=== PATIENT | female | born 1980 | race Caucasian/White ===

== ENCOUNTER 2017-02-01 18:38 | Emergency (ER) | payer MEDICAID ==
[2017-02-01 21:04] LABS: ABSOLUTE BASOPHILS # (AUTO) 0.1 10^3/uL (0.0-0.2); ABSOLUTE EOSINOPHILS # (AUTO) 0.2 10^3/uL (0.0-0.6); ABSOLUTE LYMPHOCYTES (AUTO) 2.9 10^3/uL (0.5-4.7); ABSOLUTE MONOCYTES (AUTO) 0.6 10^3/uL (0.1-1.4); ABSOLUTE NEUT (AUTO) 6.7 10^3/uL (1.7-8.2); BASOPHILS % (AUTO) 0.5 % (0-2); EOSINOPHILS % (AUTO) 2.1 % (0-6); HEMATOCRIT 45.3 % (36.0-47.0); HEMOGLOBIN 14.6 g/dL (12.0-15.5); HGB HCT DIFFERENCE -1.5; LYMPHOCYTES % (AUTO) 27.7 % (13-45); MEAN CORPUSCULAR HEMOGLOBIN 29.4 pg (27.0-33.4); MEAN CORPUSCULAR HGB CONC 32.4 g/dL (32.0-36.0); MEAN CORPUSCULAR VOLUME 91 fl (80-97); RED BLOOD COUNT 4.99 10^6/uL (3.72-5.28); RED CELL DISTRIBUTION WIDTH 15.2 % (11.5-14.0); SEGMENTED NEUTROPHILS % (AUTO) 63.7 % (42-78); WHITE BLOOD COUNT 10.6 10^3/uL (4.0-10.5)
[2017-02-01 22:05] LABS: APPEARANCE,URINE SLIGHTLY-CLOUDY; BILIRUBIN,URINE NEGATIVE (NEGATIVE); GLUCOSE, URINE >=500 mg/dL (NEGATIVE); KETONES,URINE TRACE mg/dL (NEGATIVE); LEUKOCYTE ESTERASE,URINE NEGATIVE (NEGATIVE); NITRITE,URINE NEGATIVE (NEGATIVE); PROTEIN,URINE 30 mg/dL (NEGATIVE); URINE SPECIFIC GRAVITY 1.036; UROBILINOGEN,URINE NEGATIVE mg/dL (<2.0)
--- NOTE | 2017-02-01 22:06 | ER Document Report ---
ED Medical Screen (RME) - General Chief Complaint: Vaginal Bleeding Stated Complaint: ANXIETY Time Seen by Provider: 02/01/17 21:37 Notes: Patient says that she has had vaginal bleeding for the past 5 or 6 days and it has gotten worse. She is having cramping along with the bleeding. When pressed for more history of when the vaginal bleeding began, patient actually reports irregular menses for 6-12 months. She says she is on her third or fourth different control pills, being prescribed by her primary care physician, for control and for vaginal bleeding. She was most recently switched to a new control pill a couple weeks ago. Patient has never been . Has not been seen by an OLDER ADULT SOCIAL WORK SPECIALIST yet. TRAVEL OUTSIDE OF THE [place] IN LAST 30 DAYS: No - Related Data Allergies/Adverse Reactions: brompheniramine maleate [From Dimetapp] Allergy (Severe, Verified 02/01/17 18:53 ) Extreme hyperactivity, pt feels "high" iodine [Iodine] Allergy (Severe, Verified 02/01/17 18:53) Throat swells, SOB, high fever, rash Penicillins Allergy (Severe, Verified 02/01/17 18:53) Throat swells, high fever, rash, SOB dextromethorphan HBr [From Dimetapp] Allergy (Unknown, Verified 02/01/17 18:53) phenylpropanolamine HCl [From Dimetapp] Allergy (Unknown, Verified 02/01/17 18: 53) povidone-iodine [From Betadine] Allergy (Unknown, Verified 02/01/17 18:53) pseudoephedrine HCl [From Dimetapp] Allergy (Unknown, Verified 02/01/17 18:53) Soap [From Betadine] Allergy (Unknown, Verified 02/01/17 18:53) sea food Allergy (Severe, Uncoded 02/01/17 18:53) Anaphylaxis ALL "CILLIN" DRUGS Allergy (Uncoded 02/01/17 18:53) Past Medical History - Social History Cigarette use (# per day): Yes Family history: Reviewed & Not Pertinent - Past Medical History Cardiac Medical History: Reports: Hx Hypercholesterolemia Pulmonary Medical History: Reports: Hx Asthma - As a child had exercise induced asthma, no meds now, Hx Pneumonia - May 17, 2014 Neurological Medical History: Reports: Hx Seizures - As a child, none for 20 yrs. No meds Endocrine Medical History: Reports: Hx Diabetes Mellitus Type 2 Psychiatric Medical History: Reports: Hx Anxiety - Plus panic attacks and stress , Hx Bipolar Disorder, Hx Depression, Hx Post Traumatic Stress Disorder Past Surgical History: Reports: Hx Oral Surgery - Immunizations Hx Diphtheria, Pertussis, Tetanus Vaccination: Yes - 2005 Review of Systems - Review of Systems Notes: REVIEW OF SYSTEMS: CONSTITUTIONAL : Denies fever. EENT: Denies eye, ear, nose or mouth or throat pain or other symptoms. CARDIOVASCULAR: Denies chest pain. RESPIRATORY: Denies cough, chest congestion, or shortness of breath. GASTROINTESTINAL: Denies abdominal pain or nausea, vomiting, or diarrhea. GENITOURINARY: Denies difficulty or painful urinating, urinary frequency, blood in urine. MUSCULOSKELETAL: Denies back or neck pain. Denies joint pain or swelling. SKIN: Denies rash or skin lesions. NEUROLOGICAL: Denies LOC or altered mental status. Denies headache. Denies sensory loss or motor deficits. ALL OTHER SYSTEMS REVIEWED AND NEGATIVE. Physical Exam - Vital signs Vitals: Temp Pulse Resp BP Pulse Ox 98.6 F 112 H 20 150/81 H 97 02/01/17 18:54 02/01/17 18:54 02/01/17 18:54 02/01/17 18:54 02/01/17 18:54 Interpretation: Tachycardic - Mild - Notes Notes: PHYSICAL EXAMINATION: GENERAL: Well-appearing, in no acute distress. 112 kg. HEAD: Atraumatic, normocephalic. NECK: Normal range of motion, supple. LUNGS: Breath sounds clear and equal bilaterally. HEART: Regular rate and rhythm without murmurs. ABDOMEN: Soft, minimal diffuse tenderness. No localized tenderness. No guarding or rebound. BACK: No tenderness throughout entire back. EXTREMITIES: Normal range of motion without pain. NEUROLOGICAL: Normal speech, normal gait. Normal sensory, motor, and reflex exams. Awake, alert, and oriented x3. Cranial nerves normal. PSYCH: Normal mood, normal affect. SKIN: Warm, dry, no rashes. Course - Re-evaluation Re-evalutation: 02/02/17 00:25 Patient's test is negative. CBC is normal. Advised the patient she needs to follow-up with an OLDER ADULT SOCIAL WORK SPECIALIST to have hormonal testing and have specialist care for her situation. - Vital Signs Vital signs: Temp Pulse Resp BP Pulse Ox 98.6 F 89 18 132/76 H 98 02/01/17 18:54 02/01/17 23:05 02/01/17 23:05 02/01/17 23:05 02/01/17 23:05 - Laboratory Result Diagrams: 02/01/17 20:37 Laboratory results interpreted by me: 02/01/17 02/01/17 20:37 21:41 WBC 10.6 H RDW 15.2 H Urine Protein 30 H Urine Glucose (UA) >=500 H Urine Ketones TRACE H Urine Blood LARGE H Doctor's Discharge - Discharge Clinical Impression: Vaginal bleeding Condition: Stable Disposition: HOME, SELF-CARE Additional Instructions: VAGINAL BLEEDING: You are having an episode of abnormal bleeding. Causes of abnormal vaginal bleeding can include miscarriage or tubal , tumors such as cancer or benign fibroids, medication effects, or hormone imbalance. Testing can eliminate unsuspected , tumors, or infection as a cause. "Dysfunctional uterine bleeding" is due to hormone imbalance, and is especially common at times when the normal cycle is disturbed -- whether by recent , use of control pills or hormones, or impending menopause. If the bleeding is innocent, most commonly a short course of hormones is given to restore the uterus to normal. Sometimes, the normal menstrual cycle corrects itself naturally. Sometimes , brief hormone therapy, or even a D&C is required. Your physician will advise you. Treatment for anemia may be required if bleeding is severe. You should rest and avoid intercourse until the bleeding is controlled. Call the doctor or return for re-examination if you feel faint, have increasing pain, or have a major increase in the amount of bleeding. NORMAL EXAM AND WORKUP: At this time, except for vaginal bleeding, your examination and workup show no significant abnormality. No significant abnormal physical findings were noted. All laboratory, EKG, and imaging (x-ray, CT scans, ultrasound) studies that were ordered show no significant abnormality. Although your examination and all studies that were ordered showed no significant abnormal finding, there are no examinations and no studies that are 100% accurate. There is always the possibility that some abnormality could exist and not be detected with physical examination or within the limits and capabilities of laboratory and other studies. You should return or follow up as you were instructed on your visit today for further evaluation if your symptoms do not resolve. Your irregular menstrual cycle that has been occurring for many months now it is very likely secondary to some hormone imbalance in your body. The only people who can appropriately test and treat that problem are the OLDER ADULT SOCIAL WORK SPECIALIST doctors. [facility] IN [place]: [facility] [address] [place] [address] [phone] FOLLOW-UP CARE: If you have been referred to a physician for follow-up care, call the physician s office for an appointment as you were instructed or within the next two days. If you experience worsening or a significant change in your symptoms (very heavy bleeding with large clots of blood, passage of tissue, more severe abdominal / pelvic pain or cramping, feeling faint or severe weakness, fever, etc.), notify the physician immediately or return to the Emergency Department at any time for re-evaluation. Referrals: MURRAY COPELAND, [Primary Care Provider] - Follow up as needed
[2017-02-01 23:17] VITALS: BP 132/76
== END 2017-02-01 23:05 | disposition home or self-care (01) ==
LOC: ER 18:38
DX: N93.9 Abnormal uterine and vaginal bleeding, unspecified (principal); N92.6 Irregular menstruation, unspecified; Z79.3 Long term (current) use of hormonal contraceptives; E11.9 Type 2 diabetes mellitus without complications; R00.0 Tachycardia, unspecified; Z88.8 Allergy status to other drugs, medicaments and biological substances; Z88.0 Allergy status to penicillin; Z88.3 Allergy status to other anti-infective agents; Z87.892 Personal history of anaphylaxis; Z91.013 Allergy to seafood; Z72.0 Tobacco use
CPT/HCPCS: 36415; 81001; 84703; 85025; 86900; 86901; 99284

== ENCOUNTER 2017-07-23 22:45 | Emergency (ER) | payer MEDICAID ==
[2017-07-24] MEDS ORDERED: AZITHROMYCIN 250 MG TABLET PO ONE (00:03)
--- NOTE | 2017-07-24 00:11 | ER Document Report ---
ED ENT - General Chief Complaint: L ear pain Stated Complaint: LEFT EAR PAIN Time Seen by Provider: 07/23/17 23:16 Mode of Arrival: Ambulatory Information source: Patient Notes: 36-year-old female presents to ED for complaint of left ear pain sore throat for several days. She states she was having right ear pain but it is now resolved. She states she is also having facial pains. She also states she is 6 weeks . TRAVEL OUTSIDE OF THE [place] IN LAST 30 DAYS: No - HPI Patient complains to provider of: Ear problem, Nose problem, Throat problem Onset: Other - Several days Onset/Duration: Gradual, Intermittent Quality of pain: Sharp Severity: Severe Pain Level: 5 Location of pain: Ears, Nose, Sinus, Throat Associated symptoms: Congestion, Cough, Ear pain, Runny nose, Sinus pain, Sinus drainage, Sore throat. denies: Chills, Fever Similar symptoms previously: No Recently seen / treated by doctor: No - Related Data Allergies/Adverse Reactions: brompheniramine maleate [From Dimetapp] Allergy (Severe, Verified 02/01/17 18:53 ) Extreme hyperactivity, pt feels "high" iodine [Iodine] Allergy (Severe, Verified 02/01/17 18:53) Throat swells, SOB, high fever, rash Penicillins Allergy (Severe, Verified 02/01/17 18:53) Throat swells, high fever, rash, SOB dextromethorphan HBr [From Dimetapp] Allergy (Unknown, Verified 02/01/17 18:53) phenylpropanolamine HCl [From Dimetapp] Allergy (Unknown, Verified 02/01/17 18: 53) povidone-iodine [From Betadine] Allergy (Unknown, Verified 02/01/17 18:53) pseudoephedrine HCl [From Dimetapp] Allergy (Unknown, Verified 02/01/17 18:53) Soap [From Betadine] Allergy (Unknown, Verified 02/01/17 18:53) alprazolam [From Xanax] Allergy (Verified 07/23/17 23:48) mirtazapine [From Remeron] Allergy (Verified 07/23/17 23:48) sea food Allergy (Severe, Uncoded 02/01/17 18:53) Anaphylaxis ALL "CILLIN" DRUGS Allergy (Uncoded 02/01/17 18:53) Past Medical History - General Information source: Patient - Social History Smoking Status: Current Every Day Smoker Cigarette use (# per day): Yes - 6 cigarettes a day Chew tobacco use (# tins/day): No Smoking Education Provided: Yes - 4 minutes Frequency of alcohol use: None Drug Abuse: None Occupation: None Lives with: Spouse/Significant other Family History: Arthritis, CAD, CVA, DM, Hyperlipidemia, Hypertension, Malignancy, Other - Seizures. denies: COPD Patient has suicidal ideation: No Patient has homicidal ideation: No - Past Medical History Cardiac Medical History: Reports: Hx Hypercholesterolemia Pulmonary Medical History: Reports: Hx Asthma - As a child had exercise induced asthma, no meds now, Hx Pneumonia - May 17, 2014 EENT Medical History: Reports: None Neurological Medical History: Reports: Hx Seizures - As a child, none for 20 yrs. No meds Endocrine Medical History: Reports: Hx Diabetes Mellitus Type 2 Renal/ Medical History: Reports: None Malignancy Medical History: Reports: None GI Medical History: Reports: None Musculoskeltal Medical History: Reports None Skin Medical History: Reports None Psychiatric Medical History: Reports: Hx Anxiety - Plus panic attacks and stress , Hx Bipolar Disorder, Hx Depression, Hx Post Traumatic Stress Disorder Traumatic Medical History: Reports: None Infectious Medical History: Reports: None Past Surgical History: Reports: Hx Oral Surgery - [place] teeth - Immunizations Hx Diphtheria, Pertussis, Tetanus Vaccination: Yes - 2005 Review of Systems - Review of Systems Notes: Constitutional: [PRESENT: as per HPI. ABSENT: chills, fever(s), headache(s), weight gain, weight loss] Eyes: [ABSENT: visual disturbances] Ears: [ABSENT: hearing changes] Nasopharyngeal: Left ear pain, facial pain, nasal drainage, and sore throat. Cardiovascular: [ABSENT: chest pain, dyspnea on exertion, edema, orthropnea, palpitations] Respiratory: Cough and congestion Gastrointestinal: [ABSENT: abdominal pain, constipation, diarrhea, hematemesis, hematochezia, nausea, vomiting] Genitourinary: [ABSENT: dysuria, hematuria] Musculoskeletal: [ABSENT: joint swelling] Integumentary: [ABSENT: rash, wounds] Neurological: [ABSENT: abnormal gait, abnormal speech, confusion, dizziness, focal weakness, syncope] Psychiatric: [ABSENT: anxiety, depression, homicidal ideation, suicidal ideation ] Endocrine: [ABSENT: cold intolerance, heat intolerance, menstrual abnormalities , polydipsia, polyuria] Hematologic/Lymphatic: [ABSENT: easy bleeding, easy bruising, lymphadenopathy] Physical Exam - Vital signs Vitals: Temp Pulse Resp BP Pulse Ox 98.4 F 102 H 17 150/78 H 94 07/23/17 22:52 07/23/17 22:52 07/23/17 22:52 07/23/17 22:52 07/23/17 22:52 - Notes Notes: PHYSICAL EXAMINATION: Morbidly obese unkempt female GENERAL: Well-appearing, well-nourished and in no acute distress. HEAD: Atraumatic, normocephalic. EYES: Pupils equal round and reactive to light, extraocular movements intact, conjunctiva are normal. ENT: Erythematous swollen nasal turbinates with whitish yellow drainage, oropharynx erythematous with postnasal drip without exudates. Moist mucous membranes. Right tympanic membrane pearly pacheco no swelling no drainage left tympanic membrane red and bulging loss of bony landmarks. NECK: Normal range of motion, supple without lymphadenopathy LUNGS: Breath sounds clear to auscultation bilaterally and equal. No wheezes rales or rhonchi. HEART: Regular rate and rhythm without murmurs ABDOMEN: Soft, nontender, nondistended abdomen. No guarding, no rebound. No masses appreciated. Female : deferred Musculoskeletal: Normal range of motion, no pitting or edema. No cyanosis. NEUROLOGICAL: Cranial nerves grossly intact. Normal speech, normal gait. Normal sensory, motor exams PSYCH: Normal mood, normal affect. SKIN: Warm, Dry, normal turgor, no rashes or lesions noted. Course - Re-evaluation Re-evalutation: 07/24/17 01:31 Patient was treated with azithromycin and Tylenol in the emergency room and discharged home with prescription for azithromycin. Patient to follow-up with her primary doctor and with a AGENT CONTRACT CLERK as she is she states 6 weeks . Patient instructed on cigarettes and and need to try to stop as soon as she is able. Patient verbalized understanding of instructions patient discharged home to follow-up with her primary doctor and AGENT CONTRACT CLERK. - Vital Signs Vital signs: Temp Pulse Resp BP Pulse Ox 97.8 F 99 20 128/69 H 97 07/24/17 00:21 07/24/17 00:21 07/24/17 00:21 07/24/17 00:21 07/24/17 00:21 Discharge - Discharge Clinical Impression: Sore throat (viral) Otitis media Qualifiers: Otitis media type: unspecified Laterality: left Qualified Code(s): H66.92 - Otitis media, unspecified, left ear URI (upper respiratory infection) Qualifiers: URI type: unspecified URI Qualified Code(s): J06.9 - Acute upper respiratory infection, unspecified Condition: Stable Disposition: HOME, SELF-CARE Additional Instructions: UPPER RESPIRATORY ILLNESS: You have a viral infection of the respiratory passages -- a "cold." This common infection causes nasal congestion, drainage, and often sore throat and cough. It is highly contagious. The disease usually lasts about 10 to 14 days. There is no "cure" for the viral infection -- it must run its course. If there is a complication, such as bacterial infection in the nose, sinuses, middle ear, or bronchial tubes, antibiotics may be required. The antibiotics won't affect the virus. Drink plenty of fluids. A humidifier may help. An expectorant medication or decongestant may make you more comfortable. Use acetaminophen or ibuprofen for fever or aches. See the doctor if fever persists over two days, if there is any significant worsening of your symptoms, or if you simply fail to improve as expected. Viral Syndrome The physician has diagnosed a viral infection. Viruses not only cause "colds," but can cause many different symptoms including generalized aching, fever, headache, cough, diarrhea, nausea, vomiting, and fatigue. The treatment, for the most part, is simply relief of symptoms. This means that antibiotics are usually not given. Rest, fluids, pain medications and, occasionally, medication for the specific symptoms that are most bothersome will be prescribed. Use good handwashing to avoid passing the virus to others. Shared toys should be cleaned with disinfectant. Clean the toilets, sinks, and counter surfaces in bathrooms. Launder clothing in hot water. Contact the physician if you develop any new or unusual symptoms such as severe headache, stiff neck, high fever, chest pain, productive cough, or shortness of breath. You should be rechecked if you don't see marked improvement within seven to 10 days. SORE THROAT: Sore throats may be caused by viruses, bacteria, or fungi. Most are due to a virus, and must get better on their own. Bacterial sore throats, particularly those due to "strep," need treatment with antibiotics. If an antibiotic is prescribed, be sure to take the medication for a full 10 days. Failure to take the antibiotic can result in complications such as rheumatic fever. Sometimes, an injection of antibiotics is given instead of pills or liquid. This single "shot" is equal in effectiveness to the oral medication. To relieve symptoms, take acetaminophen for pain. Sip clear liquids frequently, or eat popsicles or ice chips. Anesthetic sprays or lozenges may help. Make sure the air in the room is not too dry. Avoid using decongestants or antihistamines. Call the doctor if there is no improvement in two days, or if you have difficulty breathing, increasing throat pain, high fever, rash, or frequent vomiting. OTITIS MEDIA: You have a middle ear infection (otitis media). This is usually a complication of a cold or sore throat. The middle ear cavity becomes filled with infection. Pressure and stretching of the ear drum cause pain. Antibiotics are required. A 10 day course is usually prescribed. A decongestant may be recommended if you have a "runny nose." You may need anesthetic drops or other pain medication. A follow-up exam may be recommended to make sure the infection has completely cleared. If the ear begins to drain, it means the ear drum has ruptured. This will usually heal spontaneously. However, it means you should keep the ear dry until re-examined by a doctor. Call the physician or return for examination at once if there is severe headache, stiff neck, confusion, increasing fever, or dizziness. You should improve significantly within two days. If you're not better, call the doctor. AZITHROMYCIN: Azithromycin (Zithromax) is a broad spectrum antibiotic in the same class as erythromycin. It can treat a variety of bacterial infections, but is most frequently used for respiratory infections. Azithromycin is extremely long-lasting. It accumulates in body tissues and continues to kill bacteria for many days. In order to improve absorption, Azithromycin should be taken at least one hour before or two hours after a meal. It does not have the same strong tendency to upset the stomach as erythromycin and is usually very well tolerated. Patients who have had a rash or other true allergic reactions to erythromycin should not take this medication. Call if you develop gastrointestinal distress, severe diarrhea, rash, hives, itching, or shortness of breath. USE OF ACETAMINOPHEN (Tylenol): Acetaminophen may be taken for pain relief or fever control. It's much safer than aspirin, offering a wider range of "safe" dosages. It is safe during . Some brand names are Tylenol, Panadol, Datril, Anacin 3, Tempra, and Liquiprin. Acetaminophen can be repeated every four hours. The following are maximum recommended dosages: >89 pounds or adults 650 mg to 900 mg Acetaminophen can be repeated every four hours. Maximum dose not to exceed 4000 mg a day. SMOKING: If you smoke, you should stop smoking. The tar and chemicals in cigarette smoke are harmful. Smoking has been shown to cause: emphysema chronic bronchitis lung cancer mouth and throat cancer stomach and pancreas cancer premature aging defects In addition, smoking increases ear and lung infections in children of smokers. FOLLOW-UP CARE: If you have been referred to a physician for follow-up care, call the physician s office for an appointment as you were instructed or within the next two days. If you experience worsening or a significant change in your symptoms, notify the physician immediately or return to the Emergency Department at any time for re-evaluation. Prescriptions: Azithromycin 250 mg PO DAILY #4 tablet Forms: Smoking Cessation Education, Elevated Blood Pressure Referrals: MARKY BROCK FNP-C [Primary Care Provider] - Follow up as needed
[2017-07-24] MEDS ORDERED: ACETAMINOPHEN 325 MG TABLET PO ONE (00:24)
[2017-07-24 00:32] VITALS: BP 128/69
== END 2017-07-24 00:32 | disposition home or self-care (01) ==
LOC: ER 22:45
DX: O26.891 Other specified pregnancy related conditions, first trimester (principal); H66.92 Otitis media, unspecified, left ear; H92.02 Otalgia, left ear; R05 Cough; R09.82 Postnasal drip; O99.511 Diseases of the respiratory system complicating pregnancy, first trimester; J02.8 Acute pharyngitis due to other specified organisms; B97.89 Other viral agents as the cause of diseases classified elsewhere; J06.9 Acute upper respiratory infection, unspecified; J34.89 Other specified disorders of nose and nasal sinuses; O24.111 Pre-existing type 2 diabetes mellitus, in pregnancy, first trimester; E11.9 Type 2 diabetes mellitus without complications; O99.331 Smoking (tobacco) complicating pregnancy, first trimester; F17.210 Nicotine dependence, cigarettes, uncomplicated; Z71.6 Tobacco abuse counseling; Z3A.01 Less than 8 weeks gestation of pregnancy; Z88.8 Allergy status to other drugs, medicaments and biological substances; Z88.0 Allergy status to penicillin; Z88.3 Allergy status to other anti-infective agents; Z91.013 Allergy to seafood
CPT/HCPCS: 99282; J3490; Q0144

== ENCOUNTER 2017-07-28 19:55 | Emergency (ER) | payer MEDICAID ==
[2017-07-28] MEDS ORDERED: OXYCODONE-ACETAMINOPHEN 5-325 MG TABLET PO ONE (20:38)
--- NOTE | 2017-07-28 20:41 | ER Document Report ---
ED Medical Screen (RME) - General Chief Complaint: Vag Bleeding, +preg <12wks Stated Complaint: VAGINAL BLEEDING Time Seen by Provider: 07/28/17 20:37 Notes: Patient is here because she is having pelvic cramping. Patient was , but was informed by her NURSES AIDE doctor in [place], after an office ultrasound July 25,, that the fetus had no heartbeat and would need to be aborted. Patient says that she was given a prescription for 3 pills to take it one time which she took on Saturday morning, July 26. She says that she just started bleeding in the past hour and a half and is having cramping. She expected that she was going to have the symptoms sooner and is concerned there is some problem. She is not bleeding heavily. Not running any fever. TRAVEL OUTSIDE OF THE [place] IN LAST 30 DAYS: No - Related Data Allergies/Adverse Reactions: brompheniramine maleate [From Dimetapp] Allergy (Severe, Verified 07/28/17 19:56 ) Extreme hyperactivity, pt feels "high" iodine [Iodine] Allergy (Severe, Verified 07/28/17 19:56) Throat swells, SOB, high fever, rash Penicillins Allergy (Severe, Verified 07/28/17 19:56) Throat swells, high fever, rash, SOB dextromethorphan HBr [From Dimetapp] Allergy (Unknown, Verified 07/28/17 19:56) phenylpropanolamine HCl [From Dimetapp] Allergy (Unknown, Verified 07/28/17 19: 56) povidone-iodine [From Betadine] Allergy (Unknown, Verified 07/28/17 19:56) pseudoephedrine HCl [From Dimetapp] Allergy (Unknown, Verified 07/28/17 19:56) Soap [From Betadine] Allergy (Unknown, Verified 07/28/17 19:56) alprazolam [From Xanax] Allergy (Verified 07/28/17 19:56) mirtazapine [From Remeron] Allergy (Verified 07/28/17 19:56) sea food Allergy (Severe, Uncoded 07/28/17 19:56) Anaphylaxis ALL "CILLIN" DRUGS Allergy (Uncoded 07/28/17 19:56) Past Medical History - Social History Family history: Reviewed & Not Pertinent - Past Medical History Cardiac Medical History: Reports: Hx Hypercholesterolemia Denies: Hx Coronary Artery Disease, Hx Heart Attack, Hx Hypertension Pulmonary Medical History: Reports: Hx Asthma - As a child had exercise induced asthma, no meds now, Hx Pneumonia - May 17, 2014 Denies: Hx Bronchitis, Hx COPD Neurological Medical History: Reports: Hx Seizures - As a child, none for 20 yrs. No meds. Denies: Hx Cerebrovascular Accident Endocrine Medical History: Reports: Hx Diabetes Mellitus Type 2 Renal/ Medical History: Denies: Hx Peritoneal Dialysis Musculoskeltal Medical History: Denies Hx Arthritis Psychiatric Medical History: Reports: Hx Anxiety - Plus panic attacks and stress , Hx Bipolar Disorder, Hx Depression, Hx Post Traumatic Stress Disorder Past Surgical History: Reports: Hx Oral Surgery - [place] teeth - Immunizations Hx Diphtheria, Pertussis, Tetanus Vaccination: Yes - 2005 Physical Exam - Vital signs Vitals: Temp Pulse Resp BP Pulse Ox 97.6 F 102 H 18 161/86 H 96 07/28/17 20:03 07/28/17 20:03 07/28/17 20:03 07/28/17 20:03 07/28/17 20:03 Course - Vital Signs Vital signs: Temp Pulse Resp BP Pulse Ox 97.6 F 102 H 18 161/86 H 96 07/28/17 20:03 07/28/17 20:03 07/28/17 20:03 07/28/17 20:03 07/28/17 20:03
[2017-07-28 21:06] LABS: ABSOLUTE BASOPHILS # (AUTO) 0.1 10^3/uL (0.0-0.2); ABSOLUTE EOSINOPHILS # (AUTO) 0.6 10^3/uL (0.0-0.6); ABSOLUTE LYMPHOCYTES (AUTO) 3.3 10^3/uL (0.5-4.7); ABSOLUTE MONOCYTES (AUTO) 0.9 10^3/uL (0.1-1.4); ABSOLUTE NEUT (AUTO) 8.1 10^3/uL (1.7-8.2); BASOPHILS % (AUTO) 0.4 % (0-2); EOSINOPHILS % (AUTO) 4.6 % (0-6); HEMATOCRIT 40.9 % (36.0-47.0); HEMOGLOBIN 13.6 g/dL (12.0-15.5); LYMPHOCYTES % (AUTO) 25.7 % (13-45); MEAN CORPUSCULAR HEMOGLOBIN 29.2 pg (27.0-33.4); MEAN CORPUSCULAR HGB CONC 33.1 g/dL (32.0-36.0); MEAN CORPUSCULAR VOLUME 88 fl (80-97); MONOCYTES % (AUTO) 6.8 % (3-13); PLATELET COUNT 405 10^3/uL (150-450); RED BLOOD COUNT 4.64 10^6/uL (3.72-5.28); RED CELL DISTRIBUTION WIDTH 12.6 % (11.5-14.0); SEGMENTED NEUTROPHILS % (AUTO) 62.5 % (42-78); TOTAL CELLS COUNTED % (AUTO) 100 %
[2017-07-28] MEDS ORDERED: DIAZEPAM 5 MG TABLET PO ONE (22:51)
--- NOTE | 2017-07-28 22:56 | ER Document Report ---
ED General - General Chief Complaint: Vag Bleeding, +preg <12wks Stated Complaint: VAGINAL BLEEDING Time Seen by Provider: 07/28/17 20:37 Notes: Patient is a 36-year-old who presents with mild vaginal bleeding. Patient states that she was very concerned about the quantity of vaginal bleeding as her friend who has had a miscarriage in the past told her that it was "too much". Patient was recently given misoprostol for a medical induction of an due to having intrauterine demise at approximately 12 weeks. Patient does note that since that time she has had some intermittent lower abdominal cramping that is mild in nature. Nothing improves or worsens her symptoms. She notes that she is not having any further vaginal bleeding at this time. She notes that at no point she saturated through a single pad. She has not discussed her concerns today with her [employer]. She denies any fever, vomiting, or vaginal discharge. TRAVEL OUTSIDE OF THE [place] IN LAST 30 DAYS: No - Related Data Allergies/Adverse Reactions: brompheniramine maleate [From Dimetapp] Allergy (Severe, Verified 07/28/17 19:56 ) Extreme hyperactivity, pt feels "high" iodine [Iodine] Allergy (Severe, Verified 07/28/17 19:56) Throat swells, SOB, high fever, rash Penicillins Allergy (Severe, Verified 07/28/17 19:56) Throat swells, high fever, rash, SOB dextromethorphan HBr [From Dimetapp] Allergy (Unknown, Verified 07/28/17 19:56) phenylpropanolamine HCl [From Dimetapp] Allergy (Unknown, Verified 07/28/17 19: 56) povidone-iodine [From Betadine] Allergy (Unknown, Verified 07/28/17 19:56) pseudoephedrine HCl [From Dimetapp] Allergy (Unknown, Verified 07/28/17 19:56) Soap [From Betadine] Allergy (Unknown, Verified 07/28/17 19:56) alprazolam [From Xanax] Allergy (Verified 07/28/17 19:56) mirtazapine [From Remeron] Allergy (Verified 07/28/17 19:56) sea food Allergy (Severe, Uncoded 07/28/17 19:56) Anaphylaxis ALL "CILLIN" DRUGS Allergy (Uncoded 07/28/17 19:56) Past Medical History - General Information source: Patient - Social History Smoking Status: Current Every Day Smoker Frequency of alcohol use: None Drug Abuse: None Lives with: Spouse/Significant other Family History: Arthritis, CAD, CVA, DM, Hyperlipidemia, Hypertension, Malignancy, Other - Seizures. denies: COPD Patient has suicidal ideation: No Patient has homicidal ideation: No - Past Medical History Cardiac Medical History: Reports: Hx Hypercholesterolemia Denies: Hx Coronary Artery Disease, Hx Heart Attack, Hx Hypertension Pulmonary Medical History: Reports: Hx Asthma - As a child had exercise induced asthma, no meds now, Hx Pneumonia - May 17, 2014 Denies: Hx Bronchitis, Hx COPD Neurological Medical History: Reports: Hx Seizures - As a child, none for 20 yrs. No meds. Denies: Hx Cerebrovascular Accident Endocrine Medical History: Reports: Hx Diabetes Mellitus Type 2 Renal/ Medical History: Denies: Hx Peritoneal Dialysis Musculoskeltal Medical History: Denies Hx Arthritis Psychiatric Medical History: Reports: Hx Anxiety - Plus panic attacks and stress , Hx Bipolar Disorder, Hx Depression, Hx Post Traumatic Stress Disorder Past Surgical History: Reports: Hx Oral Surgery - [place] teeth - Immunizations Hx Diphtheria, Pertussis, Tetanus Vaccination: Yes - 2005 Review of Systems - Review of Systems Notes: Constitutional: Negative for fever. HENT: Negative for sore throat. Eyes: Negative for visual changes. Cardiovascular: Negative for chest pain. Respiratory: Negative for shortness of breath. Gastrointestinal: Positive for abdominal cramping Genitourinary: Positive for vaginal bleeding Musculoskeletal: Negative for back pain. Skin: Negative for rash. Neurological: Negative for headaches, weakness or numbness. 10 point ROS negative except as marked above and in HPI. Physical Exam - Vital signs Vitals: Temp Pulse Resp BP Pulse Ox 97.6 F 102 H 18 161/86 H 96 07/28/17 20:03 07/28/17 20:03 07/28/17 20:03 07/28/17 20:03 07/28/17 20:03 Interpretation: Tachycardic Notes: PHYSICAL EXAMINATION: GENERAL: Well-appearing, well-nourished and in no acute distress. HEAD: Atraumatic, normocephalic. EYES: Pupils equal round and reactive to light, extraocular movements intact, sclera anicteric, conjunctiva are normal. ENT: nares patent, oropharynx clear without exudates. Moist mucous membranes. NECK: Normal range of motion, supple without lymphadenopathy LUNGS: Breath sounds clear to auscultation bilaterally and equal. No wheezes rales or rhonchi. HEART: Regular rate and rhythm without murmurs ABDOMEN: Soft, nontender, normoactive bowel sounds. No guarding, no rebound. No masses appreciated. EXTREMITIES: Normal range of motion, no pitting or edema. No cyanosis. NEUROLOGICAL: No focal neurological deficits. Moves all extremities spontaneously and on command. PSYCH: Moderately anxious SKIN: Warm, Dry, normal turgor, no rashes or lesions noted. Course - Re-evaluation Re-evalutation: 07/28/17 22:52 Patient presents after having an acute panic reaction after having some mild to moderate vaginal bleeding after taking misoprostol for medically induced abortive therapy for a spontaneous intrauterine demise. Patient is otherwise very well in appearance, no focal abdominal tenderness, hemoglobin within normal limits. Vitals are within normal limits. Patient herself admits that she thinks her friend accidentally scared her into having a panic attack when she was concerned about the amount of bleeding the patient was having which is quite anticipated given the patient is receiving misoprostol. No indication for further imaging or labs at this time. I have again reviewed with the patient anticipated clinical symptoms in the setting of receiving a medical and have encouraged follow-up with [facility] as scheduled. She and her family at the bedside are in agreement with this. At this time will discharge with return precautions and follow-up recommendations. Verbal discharge instructions given a the bedside and opportunity for questions given. Medication warnings reviewed. Patient is in agreement with this plan and has verbalized understanding of return precautions and the need for primary care follow-up in the next 24-72 hours. - Vital Signs Vital signs: Temp Pulse Resp BP Pulse Ox 97.6 F 89 18 135/82 H 99 07/28/17 20:03 07/28/17 23:28 07/28/17 23:28 07/28/17 23:28 07/28/17 23:28 - Laboratory Result Diagrams: 07/28/17 20:45 Laboratory results interpreted by me: 07/28/17 20:45 WBC 13.0 H Discharge - Discharge Clinical Impression: Vaginal bleeding, Medical Condition: Good Disposition: HOME, SELF-CARE Additional Instructions: Your symptoms are anticipated for undergoing a medically induced . Return immediately if you worsening pain, you began bleeding through more than 2 pads per hour for more than 3 hours, you pass out, have persistent vomiting, develop a fever greater than 100.4F, or any other symptoms that are concerning to you.
[2017-07-28 23:46] VITALS: BP 135/82
== END 2017-07-28 23:46 | disposition home or self-care (01) ==
LOC: ER 19:55
DX: O03.6 Delayed or excessive hemorrhage following complete or unspecified spontaneous abortion (principal); E78.00 Pure hypercholesterolemia, unspecified; E11.9 Type 2 diabetes mellitus without complications; Z88.0 Allergy status to penicillin; Z91.013 Allergy to seafood
CPT/HCPCS: 99284; 36415; 85025; J3490

== ENCOUNTER 2017-08-10 04:08 | Emergency (ER) | payer MEDICAID ==
[2017-08-10] MEDS ORDERED: DIPH/PERTUSS(ACELL)/TETANUS VAC/PF 0.5 ML SYR (>=10YO) IM ONE ×2 (04:33→21:17)
[2017-08-10] MEDS ORDERED: GLUCAGON,HUMAN RECOMB 1 MG INJ IM PRN (04:33)
[2017-08-10] MEDS ORDERED: LIDOCAINE 1% INJ-PF (10 MG/ML) 30 ML SDV INJ ONE (04:33)
[2017-08-10] MEDS ORDERED: DEXTROSE 50%-WATER 25 GM/50 ML DISP.SYRIN IV PRN ×2 (04:33)
[2017-08-10] MEDS ORDERED: DEXTROSE 40% GEL 15 GM TUBE PO PRN ×2 (04:33)
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
[2017-08-10 05:23] LABS: ABSOLUTE BASOPHILS # (AUTO) 0.1 10^3/uL (0.0-0.2); ABSOLUTE EOSINOPHILS # (AUTO) 0.2 10^3/uL (0.0-0.6); ABSOLUTE LYMPHOCYTES (AUTO) 2.8 10^3/uL (0.5-4.7); ABSOLUTE MONOCYTES (AUTO) 0.7 10^3/uL (0.1-1.4); ABSOLUTE NEUT (AUTO) 7.5 10^3/uL (1.7-8.2); BASOPHILS % (AUTO) 0.6 % (0-2); EOSINOPHILS % (AUTO) 2.1 % (0-6); HEMATOCRIT 39.8 % (36.0-47.0); HEMOGLOBIN 13.1 g/dL (12.0-15.5); LYMPHOCYTES % (AUTO) 24.9 % (13-45); MEAN CORPUSCULAR HEMOGLOBIN 28.6 pg (27.0-33.4); MEAN CORPUSCULAR VOLUME 87 fl (80-97); MONOCYTES % (AUTO) 6.5 % (3-13); PLATELET COUNT 373 10^3/uL (150-450); RED BLOOD COUNT 4.59 10^6/uL (3.72-5.28); RED CELL DISTRIBUTION WIDTH 13.2 % (11.5-14.0); SEGMENTED NEUTROPHILS % (AUTO) 65.9 % (42-78); TOTAL CELLS COUNTED % (AUTO) 100 %; WHITE BLOOD COUNT 11.4 10^3/uL (4.0-10.5)
[2017-08-10 05:43] LABS: ALANINE AMINOTRANSFERASE 30 U/L (9-52); ALBUMIN 3.9 g/dL (3.5-5.0); ALKALINE PHOSPHATASE 93 U/L (38-126); ANION GAP 10 (5-19); ASPARTATE AMINO TRANSFERASE 16 U/L (14-36); BILIRUBIN,DIRECT 0.4 mg/dL (0.0-0.4); BILIRUBIN,TOTAL 0.8 mg/dL (0.2-1.3); BLOOD UREA NITROGEN 11 mg/dL (7-20); CALCIUM 9.6 mg/dL (8.4-10.2); CARBON DIOXIDE 24 mmol/L (22-30); CHLORIDE 104 mmol/L (98-107); GLUCOSE 271 mg/dL (75-110); POTASSIUM 4.1 mmol/L (3.6-5.0); SODIUM 137.7 mmol/L (137-145); TOTAL PROTEIN 6.4 g/dL (6.3-8.2)
[2017-08-10 05:45] LABS: ACETAMINOPHEN < 10 ug/mL (10-30); ALCOHOL < 10 mg/dL (NONE DETECTED); SALICYLATE < 1.0 mg/dL (2.0-20.0)
--- NOTE | 2017-08-10 09:50 | EKG REPORT ---
SEVERITY:- NORMAL ECG - SINUS RHYTHM : Confirmed by: Julio Ahn MD 10-Aug-2017 09:49:43
[2017-08-10] MEDS: BUSPIRONE HCL 10 MG TABLET PO SCH ×2 (10:17→21:34)
[2017-08-10] MEDS: INSULIN REG, HUMAN 100 UNIT/ML 3 ML VIAL (PYX) SUBCUT PRN ×3 (10:18→21:48)
[2017-08-10] MEDS: DULOXETINE HCL 30 MG CAPSULE.DR PO SCH ×2 (10:18→21:35)
--- NOTE | 2017-08-10 10:56 | ER Document Report ---
Doctor's Note Notes: 08/10/17 10:57 36-year-old female. Seen by mental health this morning. Recommend for IVC. Will place on IVC sign paperwork at this time. Will have the psychologist see patient as well. Will continue to follow throughout the day.
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
[2017-08-10] MEDS ORDERED: DULOXETINE HCL 30 MG CAPSULE.DR PO SCH (12:30)
[2017-08-10] MEDS: OLANZAPINE 2.5 MG TABLET PO SCH ×2 (12:38→21:40)
[2017-08-11] MEDS: INSULIN REG, HUMAN 100 UNIT/ML 3 ML VIAL (PYX) SUBCUT PRN ×2 (07:12→16:07)
[2017-08-11] MEDS: DULOXETINE HCL 30 MG CAPSULE.DR PO SCH ×2 (10:47→18:20)
[2017-08-11] MEDS: BUSPIRONE HCL 10 MG TABLET PO SCH ×2 (10:47→18:20)
[2017-08-11] MEDS: OLANZAPINE 2.5 MG TABLET PO SCH ×2 (10:48→18:19)
[2017-08-11 12:17] LABS: APPEARANCE,URINE CLOUDY; BILIRUBIN,URINE NEGATIVE (NEGATIVE); COLOR,URINE YELLOW; GLUCOSE, URINE >=500 mg/dL (NEGATIVE); KETONES,URINE NEGATIVE (NEGATIVE); LEUKOCYTE ESTERASE,URINE NEGATIVE (NEGATIVE); NITRITE,URINE NEGATIVE (NEGATIVE); PROTEIN,URINE NEGATIVE (NEGATIVE); URINE SPECIFIC GRAVITY 1.023; UROBILINOGEN,URINE NEGATIVE mg/dL (<2.0)
[2017-08-11 12:25] LABS: URINE AMPHETAMINES SCREEN NEGATIVE; URINE BARBITURATES SCREEN NEGATIVE; URINE BENZODIAZEPINES SCREEN UNCONFIRMED POSITIVE; URINE COCAINE SCREEN NEGATIVE; URINE MARIJUANA (THC) SCREEN NEGATIVE; URINE METHADONE SCREEN NEGATIVE; URINE PHENCYCLIDINE SCREEN NEGATIVE
--- NOTE | 2017-08-11 12:31 | PSYCHOLOGICAL NOTE ---
Psych Note - Psych Note Psych Note: Reason for consult: Suicidal ideation/attempt Re- Eval: 9:57 AM Contact Permissions: Patient's mother and father Leticia Nunn and Bernadette Nunn # [phone] Patient is a 36-year-old female. Patient reports that she feels "hurt about the situation". Patient reports that she never said that only her parents could contact her and that she was curious if her ex-boyfriend tried to contact her. Patient reports that she has been unable to get up and go to the bathroom. Patient reports that she knows that she has to provide a urine sample and will "maybe do it". Patient reports that she just feels like sleeping. Patient reports that she is not hungry so she has not eaten. Patient reports that when she goes home she would like to live with her parents. Patient reports that she has 3 dogs that are like her kids. Patient reports her 2 oldest dogs "need her". Patient reports that she was not suicidal when she cut her arm. Patient reports that she was just angry at her boyfriend and wanted him to know that she hurt. Patient reports that she was hoping he would care and feel what he would feel if he did lose her. Patient reports that it "hurt like hell", and that she would never cut her arm again. Patient reports that she takes her medications every day and believes that her depression came from the medication changes. collateral information:Patient's mother Leticia Nunn Patient's mother reports that she wants to take patient home and monitor her closely as she does not work and is able to stay with her the entire time. Patient's mother reports that she is concerned for patient going to an inpatient psychiatric hospital. Patient's mother reports that she has the dogs at her house and is willing to have patient come stay with her. Patient's mother reports that she does not want patient to go back to her ex-boyfriend's home and has spoken with patient about patient permanently moving with her. Patient's mother reports that she has in the past driven from out of town to drive patient to her doctor's appointments to make sure she is not missing them and she is willing to continue to hold patient accountable to taking her medications and transporting her to her appointments . Patient's mother reports that she can tell when patient is depressed by watching if she is eating, sleeping, and whether or not she is being "snappy". Medication recommendations made by [facility] psychiatric provider Dr. Shaina MD includes: 1.Continue BuSpar 10 mg twice a day by mouth 2.Continue Cymbalta 60 mg once daily by mouth 3.Continue Zyprexa 2.5 mg twice a day by mouth Diagnosis: Per Hx 309.81 ( F43.10) PTSD Per Hx 311 ( f32.9) Unspecified Depressive Disorder V 61.10 (Z 63.0) relationship distress with spouse or intimate partner V 62.82 (V 63.4) uncomplicated bereavement Impression/plan: Recommendation to maintain involuntary commitment due to patient meeting criteria [place] GS 122C. Less than 48 hours ago patient attempted suicide through-cutting arm with knife. Clinician observed that although patient has redacted original statement and stated that she cut herself as a means for attention, the negative coping skill was self- injurious behavior requiring medical attention. Clinician observed patient appears lethargic, displays flat affect, is guarded, and has a depressed mood and is at risk or harm to self. Mental health to reassess at a later time. Consulted with Dr. Mott regarding the management and care of patient.
--- NOTE | 2017-08-11 19:24 | ER Document Report ---
Doctor's Note Notes: 08/11/17 19:22 Medical rounds: Chart reviewed and patient interviewed briefly. Vital signs are normal. Blood sugar tends to run a little high, patient states she has been getting insulin on sliding scale. Otherwise, lab work is normal. On examination, patient is alert, oriented, and cooperative. She denies any somatic complaints at this time. She remains medically stable pending disposition.
--- NOTE | 2017-08-12 09:17 | ER Document Report ---
Doctor's Note Notes: 08/12/17 09:43 As the rounding physician for our psychiatric patients, I have reviewed the chart, vitals, lab work. Patient has been examined and noted to be resting comfortably with mother in the room, lacerations appear well . I am awaiting mental health in put.
[2017-08-12 10:05] VITALS: BP 144/66
--- NOTE | 2017-08-12 10:58 | PSYCHOLOGICAL NOTE ---
Psych Note - Psych Note Psych Note: Reason for consult: Suicidal ideation Re-eval: 9:00 am final disposition 9:37 am Patient is a 36 year old female. Patient denies SI/HI. Patient reports that she is feeling better today and has been coloring, watching TV, and talking with her parents. Patient reports that her ex-boyfriend was here a few months ago for mental health issues and since he has been off of meds he has been angry in their home. Patient reports that she does not want to go back to his house and realized that this whole situation could have been avoided if she had left sooner. Patient reports that she just wants to go with her mom to her home and see her dogs. Patient reports that they have plans to go to the beach as her dad works there. Patient reports that she has an upcoming appointment on the for therapy. Patient reports that although she feels better she does not think it was the medications because she knows that medications take a while for her to get used to. Patient reports that she thinks all of this was caused by her medications not being right since the and miscarriage. Patient reports that she regrets self harm and explained it is a "negative coping skill". Patient reports that her positive coping skills are coloring and cross stitching. Patient reports that she intends on going out to eat with her family, go shopping with her mother, and can eat and have whatever she wants at her parents house. collateral information:Patient's mother Leticia Nunn ( Present) Patient's mother reports she will transport patient to her therapy appointments. Patient's mother reports that she noticed her daughters mood has improved and states she got up and showered, ate regularly, and has been doing her art. Patient's mother reports they have made plans to go to the beach, hang out with their dogs, and spoke with patient about staying away from the ex- boyfriend. Patient's mother reports that patient told her she does not intend on going back to him and realized that he has to get his own mental health sorted out before she could communicate with him. Patient's mother reports that patient has never done this before and does not feel that it is a possibility for her to self-harm because she spoke about how she regretted cutting her arm for attention because it "hurt like hell". Medication recommendations made by [facility] psychiatric provider Dr. Shaina MD includes: 1.Continue BuSpar 10 mg twice a day by mouth 2.Continue Cymbalta 60 mg once daily by mouth 3.Continue Zyprexa 2.5 mg twice a day by mouth Diagnosis: Per Hx 309.81 ( F43.10) PTSD Per Hx 311 ( f32.9) Unspecified Depressive Disorder V 61.10 (Z 63.0) relationship distress with spouse or intimate partner V 62.82 (V 63.4) uncomplicated bereavement Impression/Plan: Patient is psychiatrically cleared for discharge. Clinician observed patient's affect has improved, is brighter, and mood has improved; patient is laughing with staff and family. Recommendation for patient to follow up with outpatient therapy at [facility] scheduled September 19, 2017 at 9:30 am. Patient's mother is present and has agreed to monitor patient at home and assist her in getting to outpatient therapy and medication management appointments at [facility]. Patient's mother and patient reports patient will be moving in with mother and father. Consulted with Dr. Mott regarding the management care of patient.
[2017-08-12] MEDS ORDERED: OLANZAPINE 2.5 MG TABLET PO ONE (11:00)
[2017-08-12] MEDS: BUSPIRONE HCL 10 MG TABLET PO SCH (11:08)
== END 2017-08-12 11:47 | disposition home or self-care (01) ==
LOC: ER 04:08
PROC: 0HQEXZZ Repair Left Lower Arm Skin, External Approach (ICD-10-PCS; principal; 2017-08-10)
DX: S51.812A Laceration without foreign body of left forearm, initial encounter (principal); F32.9 Major depressive disorder, single episode, unspecified; X78.1XXA Intentional self-harm by knife, initial encounter; F17.200 Nicotine dependence, unspecified, uncomplicated; J45.909 Unspecified asthma, uncomplicated; E11.9 Type 2 diabetes mellitus without complications
CPT/HCPCS: 93005; 99285; 90471; 36415; 82962; 80307 ×4; 84703; 85025; 80053; 81001; 90715; 93010; 12001; J3490 ×9; J1815

== ENCOUNTER → 2018-08-14 | Outpatient (CLI) | payer MEDICAID ==
--- NOTE | 2018-08-14 12:51 | RADIOLOGY REPORT (SQ) ---
EXAM DESCRIPTION: C SP 4 OR 5 VIEWS COMPLETED DATE/TIME: 08/14/2018 10:34 am REASON FOR STUDY: NECK PAIN M54.2 CERVICALGIA COMPARISON: None. NUMBER OF VIEWS: Five views. TECHNIQUE: AP, lateral, obliques and odontoid radiographic images acquired of the cervical spine. LIMITATIONS: None. FINDINGS: There is straightening of the lordotic curve. There is disc space narrowing and osteophyt e formation C5- 6 through C7-T1. Prevertebral soft tissues are normal. Mild neural foraminal narrow ing C5-6 through C7-T1. IMPRESSION: Cervical disc disease. TECHNICAL DOCUMENTATION: JOB ID: [id number] [employer]- All Rights Reserved Reading location - IP/workstation name: [email or web address]
== END ==
LOC: OD 10:16
PROVIDERS: ATTEND Family Medicine
DX: M54.2 Cervicalgia (principal)
CPT/HCPCS: 72050

== ENCOUNTER 2019-01-21 11:17 | Emergency (ER) | payer MEDICARE, MEDICAID ==
[2019-01-21 14:18] LABS: ABSOLUTE BASOPHILS # (AUTO) 0.1 10^3/uL (0.0-0.2); ABSOLUTE EOSINOPHILS # (AUTO) 0.2 10^3/uL (0.0-0.6); ABSOLUTE LYMPHOCYTES (AUTO) 2.3 10^3/uL (0.5-4.7); ABSOLUTE MONOCYTES (AUTO) 0.6 10^3/uL (0.1-1.4); ABSOLUTE NEUT (AUTO) 5.6 10^3/uL (1.7-8.2); BASOPHILS % (AUTO) 0.7 % (0-2); EOSINOPHILS % (AUTO) 2.4 % (0-6); HEMATOCRIT 36.8 % (36.0-47.0); HEMOGLOBIN 11.5 g/dL (12.0-15.5); LYMPHOCYTES % (AUTO) 26.5 % (13-45); MEAN CORPUSCULAR HEMOGLOBIN 23.4 pg (27.0-33.4); MEAN CORPUSCULAR HGB CONC 31.2 g/dL (32.0-36.0); MEAN CORPUSCULAR VOLUME 75 fl (80-97); MONOCYTES % (AUTO) 7.3 % (3-13); PLATELET COUNT 283 10^3/uL (150-450); RED BLOOD COUNT 4.91 10^6/uL (3.72-5.28); RED CELL DISTRIBUTION WIDTH 18.3 % (11.5-14.0); SEGMENTED NEUTROPHILS % (AUTO) 63.1 % (42-78); TOTAL CELLS COUNTED % (AUTO) 100 %; WHITE BLOOD COUNT 8.9 10^3/uL (4.0-10.5)
--- NOTE | 2019-01-21 14:31 | ER Document Report ---
ED GI/ - General Chief Complaint: Vaginal Bleeding Stated Complaint: VAGINAL BLEEDING Time Seen by Provider: 01/21/19 13:41 Primary Care Provider: [facility] [Provider Group] - Follow up as needed MURRAY COPELAND DO [Primary Care Provider] - Follow up tomorrow Mode of Arrival: Ambulatory Information source: Patient Notes: 38-year-old female presented to ED for complaint of bleeding x2 weeks. She states when she was 14 years old she had a period that lasted 3 months went on for different controls and finally they will talk about doing a hyste rectomy when they finally found the medicine that would stop her bleeding. She states a year ago she had a miscarriage and then August she had a last period before now and now she has bled for 2 weeks. She states she is having severe pelvic cramping and pain for the last 2 weeks. She states she goes through more pads than she ever has before she is gone through 4 boxes of pads in the last 2 weeks. Patient is alert oriented respirations regular and unlabored speaking in full sentences. TRAVEL OUTSIDE OF THE [place] IN LAST 30 DAYS: No - HPI Patient complains to provider of: Abdominal pain, Pelvic pain, Vaginal bleeding Onset: Other - 2 weeks Timing/Duration: Intermittent Quality of pain: Cramping, Sharp Severity at maximum: Moderate Severity in ED: Moderate Pain Level: 4 Location: Suprapubic, Pelvis Vaginal bleeding (Compared to normal period): Similar Associated symptoms: Other - Vaginal bleeding pelvic pain Exacerbated by: Movement, Walking Relieved by: Denies Similar symptoms previously: Yes Recently seen / treated by doctor: Yes - Related Data Allergies/Adverse Reactions: brompheniramine maleate [From Dimetapp] Allergy (Severe, Verified 01/21/19 1 1:18) Extreme hyperactivity, pt feels "high" iodine [Iodine] Allergy (Severe, Verified 01/21/19 11:18) Throat swells, SOB, high fever, rash Penicillins Allergy (Severe, Verified 01/21/19 11:18) Throat swells, high fever, rash, SOB dextromethorphan HBr [From Dimetapp] Allergy (Unknown, Verified 01/21/19 11:18) phenylpropanolamine HCl [From Dimetapp] Allergy (Unknown, Verified 01/21/19 11:18) povidone-iodine [From Betadine] Allergy (Unknown, Verified 01/21/19 11:18) pseudoephedrine HCl [From Dimetapp] Allergy (Unknown, Verified 01/21/19 11:18) Soap [From Betadine] Allergy (Unknown, Verified 01/21/19 11:18) alprazolam [From Xanax] Allergy (Verified 01/21/19 11:18) mirtazapine [From Remeron] Allergy (Verified 01/21/19 11:18) sea food Allergy (Severe, Uncoded 01/21/19 11:18) Anaphylaxis ALL "CILLIN" DRUGS Allergy (Uncoded 01/21/19 11:18) Past Medical History - General Information source: Patient - Social History Smoking Status: Current Every Day Smoker Chew tobacco use (# tins/day): No Frequency of alcohol use: None Drug Abuse: None Lives with: Friend Family History: Arthritis, CAD, CVA, DM, Hyperlipidemia, Hypertension, Malignancy, Other - Seizures. denies: COPD Patient has suicidal ideation: No Patient has homicidal ideation: No - Medical History Medical History: Other - Anemia, coughing induced syncope, stress attacks - Past Medical History Cardiac Medical History: Reports: Hx Hypercholesterolemia Pulmonary Medical History: Reports: Hx Asthma - As a child had exercise induced asthma, no meds now, Hx Pneumonia - May 17, 2014 EENT Medical History: Reports: None Neurological Medical History: Reports: Hx Seizures - As a child, none for 20 yrs. No meds Endocrine Medical History: Reports: Hx Diabetes Mellitus Type 2 Renal/ Medical History: Reports: None Malignancy Medical History: Reports: None GI Medical History: Reports: None Musculoskeletal Medical History: Reports None Skin Medical History: Reports None Psychiatric Medical History: Reports: Hx Anxiety - Plus panic attacks and stress, Hx Bipolar Disorder, Hx Depression, Hx Post Traumatic Stress Disorder Traumatic Medical History: Reports: None Infectious Medical History: Reports: None Past Surgical History: Reports: Hx Dilation and Curettage, Hx Oral Surgery - [place] teeth - Immunizations Hx Diphtheria, Pertussis, Tetanus Vaccination: Yes - 2005 Review of Systems - Review of Systems Constitutional: No symptoms reported EENT: No symptoms reported Cardiovascular: No symptoms reported Respiratory: No symptoms reported Gastrointestinal: No symptoms reported Genitourinary: No symptoms reported Female Genitourinary: Vaginal bleeding, Other - Pelvic pain Musculoskeletal: No symptoms reported Skin: No symptoms reported Hematologic/Lymphatic: No symptoms reported Neurological/Psychological: No symptoms reported -: Yes All other systems reviewed and negative Physical Exam - Vital signs Vitals: Temp Pulse Resp BP Pulse Ox 98.1 F 117 H 18 153/99 H 96 01/21/19 11:23 01/21/19 11:23 01/21/19 11:23 01/21/19 11:23 01/21/19 11:23 Interpretation: Normal - General General appearance: Appears well, Alert - HEENT Head: Normocephalic, Atraumatic Eyes: Normal Pupils: PERRL - Respiratory Respiratory status: No respiratory distress Chest status: Nontender Breath sounds: Normal Chest palpation: Normal - Cardiovascular Rhythm: Regular Heart sounds: Normal auscultation Murmur: No - Abdominal Inspection: Normal Distension: No distension Bowel sounds: Normal Tenderness: Tender Organomegaly: No organomegaly - Genitourinary External exam: Normal Speculum exam: Normal Vaginal bleeding: Mild Bimanuel exam: Normal Notes: Digna Bernal RN was present to help with exam - Back Back: Normal, Nontender - Extremities General upper extremity: Normal inspection, Nontender, Normal color, Normal ROM, Normal temperature General lower extremity: Normal inspection, Nontender, Normal color, Normal ROM, Normal temperature, Normal weight bearing. No: Norma's sign - Neurological Neuro grossly intact: Yes Cognition: Normal Orientation: AAOx4 [place] Coma Scale Eye Opening: Spontaneous Jose Coma Scale Verbal: Oriented Jose Coma Scale Motor: Obeys Commands Jose Coma Scale Total: 15 Speech: Normal Motor strength normal: LUE, RUE, LLE, RLE Sensory: Normal - Psychological Associated symptoms: Normal affect, Normal mood - Skin Skin Temperature: Warm Skin Moisture: Dry Skin Color: Normal Course - Re-evaluation Re-evalutation: 01/21/19 19:40 Labs and ultrasound discussed with patient and written report of labs and ultrasound given to patient. Patient did have a blood sugar of over 500. I have given her 2 L of fluids and monitor the blood sugar it is now down to 316. Patient has been given instructions on diet control for this sugar. She is a diabetic and is on medications for it. She states she is also on Zyprexa which elevates her blood sugar. I have instructed her that she cannot be eating cinnamon toast crunch when she is diabetic and has high blood sugar. I discussed with her food she can and cannot eat. Patient did verbalize understanding and agreement with treatment plan she has states that she will go to her mental health provider to talk about the blood sugars in the medication she is on she will also go to her primary care doctor and [facility]. Patient will be discharged home with the understanding that she is to follow-up as instructed. - Vital Signs Vital signs: Temp Pulse Resp BP Pulse Ox 98.2 F 94 16 145/86 H 95 01/21/19 19:45 01/21/19 19:45 01/21/19 19:45 01/21/19 19:45 01/21/19 19:45 - Laboratory Result Diagrams: 01/21/19 14:00 01/21/19 14:00 Laboratory results interpreted by me: 01/21/19 01/21/19 01/21/19 14:00 14:00 14:00 Hgb 11.5 L MCV 75 L MCH 23.4 L MCHC 31.2 L RDW 18.3 H Sodium 133.8 L Chloride 97 L Creatinine 0.44 L Glucose 546 H* POC Glucose AST 47 H Alkaline Phosphatase 173 H Urine Protein 100 H Urine Glucose (UA) >=500 H Urine Blood MODERATE H 01/21/19 01/21/19 17:06 18:57 Hgb MCV MCH MCHC RDW Sodium Chloride Creatinine Glucose POC Glucose 336 H 315 H AST Alkaline Phosphatase Urine Protein Urine Glucose (UA) Urine Blood - Diagnostic Test Radiology reviewed: Image reviewed, Reports reviewed Discharge - Discharge Clinical Impression: Vaginal bleeding, Bacterial vaginosis Hyperglycemia due to type 2 diabetes mellitus Qualifiers: Diabetes mellitus buttermaker continuous churn insulin use: with buttermaker continuous churn use Qualified Code(s): E11.65 - Type 2 diabetes mellitus with hyperglycemia Condition: Stable Disposition: HOME, SELF-CARE Additional Instructions: HYPERGLYCEMIA (HIGH BLOOD SUGAR): You have an abnormally high blood sugar. Not all high blood sugar requires long-term treatment. High blood sugar can be due to medications, , or the stress of illness. (These cases are "borderline diabetes.") If the doctor feels your high blood sugar might resolve with time, you may not require treatment now. It's very important that you follow through, to see if the blood sugar returns to normal levels. Uncontrolled high blood sugar leads to early heart disease, strokes, nerve damage, eye damage, and kidney damage. Call the physician if there is faintness, excess sleepiness, or very rapid breathing. DIABETES: You have an abnormally high blood sugar, suspicious for diabetes. Not all high blood sugar requires long-term treatment. High blood sugar can be due to medications, , or the stress of illness. (These cases are "borderline diabetes.") If the doctor feels your high blood sugar might get better with time, you may not require treatment now. It's very important that you follow through. Uncontrolled high blood sugar leads to early heart disease, strokes, nerve damage, eye damage, and kidney damage. All diabetics should follow a diet designed to control the blood sugar. Overweight diabetics should exercise regularly and lose weight. If this is not sufficient to control the blood sugar, pills or insulin shots are necessary. Younger people who develop diabetes almost always require insulin daily. Home testing of blood sugars or urine sugar is required. Diabetic teaching is available to help you figure insulin doses and monitor the blood sugar. Call the physician if there is faintness, excess sleepiness, or very rapid breathing. If hypoglycemia (LOW blood sugar) develops, symptoms are shakiness, weakness, sweating, and confusion. In this case, you should eat or drink something with sugar at once. INSULIN: Insulin is a natural hormone that lowers blood sugar. Normal blood sugar prevents complications of diabetes. For most diabetics, insulin is the best way to treat the illness. Be sure you know how to measure the insulin correctly. Insulin is measured in "units." There are three types of insulin: N (NPH or long acting), R (regular or short acting), and L (Lente or very long acting). Be sure you are using the right amount of each type. Insulin must be injected into the fat. You can use the abdomen, upper arms, and thighs. Select a different injection site every time. Wipe the site with alcohol before injecting. When first starting insulin, some adjusting of the insulin dose is necessary. Keep a record of each insulin dose and time of injection, and of the blood sugar and the time you test it. Sometimes insulin can make the blood sugar too low. If you become dizzy, sweaty, shaky, or confused, you may be having a hypoglycemic episode. Immediately use juice or some other sweet food. Call the doctor if the symptoms don't go away. ORAL HYPOGLYCEMIC MEDICATION: Oral hypoglycemics are medicines that lower blood sugar in diabetics. They are not effective for younger diabetics who require insulin. Some brands are tolbutamide, Orinase, glipizide, Glucotrol, glyburide, DiaBeta, Glynase, and Micronase. Some medications can increase or decrease the effect of Diabinese. Examples are Clofibrate (Atromid-S), phenylbutazone (Butazolidin), aspirin, sulfonamides, Coumadin, allopurinol (Zyloprim), probenecid (Benemid), acetazolamide (Diamox), beta blockers, steroids, estrogens, Indocin, INH, Levothyroxine, nicotinic acid, Diflucan, Dilantin, and thiazide diuretics. Be sure your doctor knows all the medicines you take, and talk to your doctor before making any changes in your medicines. If you develop symptoms of shakiness, sweats, and lightheadedness, your blood sugar may have gone too low. Eat or drink a small amount of sweet food. If symptoms don't go away, call your doctor. VAGINAL BLEEDING: You are having an episode of abnormal bleeding. Causes of abnormal vaginal bleeding can include miscarriage or tubal , tumors such as cancer or benign fibroids, medication effects, or hormone imbalance. Testing can eliminate unsuspected , tumors, or infection as a cause. "Dysfunctional uterine bleeding" is due to hormone imbalance, and is especially common at times when the normal cycle is disturbed -- whether by recent , use of control pills or hormones, or impending menopause. If the bleeding is innocent, most commonly a short course of hormones is given to restore the uterus to normal. Sometimes, the normal menstrual cycle corrects itself naturally. Sometimes, brief hormone therapy, or even a D&C is required. Your physician will advise you. Treatment for anemia may be required if bleeding is severe. You should rest and avoid intercourse until the bleeding is controlled. Call the doctor or return for re-examination if you feel faint, have increasing pain, or have a major increase in the amount of bleeding. VAGINOSIS, BACTERIAL: Your exam shows you have bacterial vaginosis. This condition is due to an overgrowth of bacteria in the vagina. Symptoms may include vaginal itching or pain, a smelly discharge, and sometimes burning with urination. Normally this is not transmitted by sexual contact. Vaginosis can be treated with oral or topical antibiotics. Metronidazole (Flagyl) pills are usually effective. Topical vaginal creams include Cleocin and Metro-Gel. You should avoid sexual contact until your symptoms are all better. Call the doctor if you develop pelvic pain, fever, or problems with urination, or if you don't improve as expected. METRONIDAZOLE: Metronidazole (Flagyl) has been prescribed. This medication is used to kill a type of bacteria called anaerobes, and protozoan parasites such as trichomonas and Giardia. Flagyl often causes a metallic taste in the mouth and mild nausea. Do not use alcohol in any form with Flagyl (including alcohol in medication elixirs). Flagyl interacts with alcohol to cause flushing, palpitations, headache, stomach cramps, and vomiting. Do not use Flagyl if you are taking Antabuse (disulfiram). Call the doctor at once if you develop rash, shortness of breath, itching, or lightheadedness. Remember the diet instructions that we discussed. No sweets cereals in fact very little cereal at all as this is cannot raise your blood sugar. Please try to limit yourself to meats and vegetables with little starches until you can get your sugar under control. Please increase your fluid intake to 8-10 bottles of water a day. No sweet drinks no sweets. Follow-up with the [facility] if you continue to have any vaginal bleeding after the next couple days. You will need to get an exam and possibly put back on control to regulate your menstrual cycles. These have your primary care doctor refer you to a dietitian to help with your diabetes FOLLOW-UP CARE: If you have been referred to a physician for follow-up care, call the physicians office for an appointment as you were instructed or within the next two days. If you experience worsening or a significant change in your symptoms, notify the physician immediately or return to the Emergency Department at any time for re-evaluation. OBSTETRIC-GYNECOLOGIC (OB-SIDE SEAM TENDER) [facility] [place] [facility]: [facility] [address] [place] [address] [phone] Prescriptions: Metronidazole [Flagyl 500 mg Tablet] 500 mg PO BID #14 tablet Forms: Elevated Blood Pressure, Smoking Cessation Education Referrals: MURRAY COPELAND DO [Primary Care Provider] - Follow up tomorrow [facility] [Provider Group] - Follow up as needed
[2019-01-21 15:02] LABS: APPEARANCE,URINE CLOUDY; BILIRUBIN,URINE NEGATIVE (NEGATIVE); GLUCOSE, URINE >=500 mg/dL (NEGATIVE); KETONES,URINE NEGATIVE (NEGATIVE); LEUKOCYTE ESTERASE,URINE NEGATIVE (NEGATIVE); NITRITE,URINE NEGATIVE (NEGATIVE); PROTEIN,URINE 100 mg/dL (NEGATIVE); URINE SPECIFIC GRAVITY 1.035; UROBILINOGEN,URINE NEGATIVE mg/dL (<2.0)
[2019-01-21 15:03] LABS: COLOR,URINE RED
[2019-01-21 15:44] LABS: ALBUMIN 3.9 g/dL (3.5-5.0); ALKALINE PHOSPHATASE 173 U/L (38-126); ANION GAP 11 (5-19); ASPARTATE AMINO TRANSFERASE 47 U/L (14-36); BILIRUBIN,DIRECT 0.4 mg/dL (0.0-0.4); BILIRUBIN,TOTAL 0.5 mg/dL (0.2-1.3); BLOOD UREA NITROGEN 9 mg/dL (7-20); CALCIUM 9.8 mg/dL (8.4-10.2); CARBON DIOXIDE 26 mmol/L (22-30); CHLORIDE 97 mmol/L (98-107); TOTAL PROTEIN 6.5 g/dL (6.3-8.2)
--- NOTE | 2019-01-21 15:50 | RADIOLOGY REPORT (SQ) ---
EXAM DESCRIPTION: U/S NON OB PEL TV W/DOPPLER COMPLETED DATE/TIME: 01/21/2019 3:42 pm REASON FOR STUDY: vaginal bleeding COMPARISON: None. TECHNIQUE: Dynamic and static grayscale images acquired of the pelvis via transvaginal approach and recorded on PACS. Additional selected color Doppler and spectral images recorded. LIMITATIONS: None. FINDINGS: UTERUS: Contour normal. No mass. ENDOMETRIAL STRIPE: No focal or generalized thickening. No masses. CERVIX: There is a small nabothian cyst. RIGHT OVARY AND DOPPLER: Normal size. No worrisome masses. Normal arterial vascular flow without evid ence for torsion. There is a simple small right ovarian cysts. Largest diameter is 3.7 cm. LEFT OVARY AND DOPPLER: Ovary not visualized. FREE FLUID: None noted. OTHER: No other significant finding. MEASUREMENTS: UTERUS: 7.0 x 3.5 x 2.9 cm. ENDOMETRIAL STRIPE: 6.9 mm. RIGHT OVARY: 3.9 x 3.2 x 2.5 cm. LEFT OVARY: Not visualized. IMPRESSION: Nonvisualization of left ovary. Small right ovarian cyst. TECHNICAL DOCUMENTATION: JOB ID: [id number] All Rights Reserved Rev Reading location - IP/workstation name: [email or web address]
[2019-01-21 16:00] LABS: GLUCOSE 546 mg/dL (75-110)
[2019-01-21] MEDS: NORMAL SALINE 1000 ML 1,000 ML IV PRN ×2 (16:12→17:13)
[2019-01-21 16:54] LABS: T.VAGINALIS (WET MOUNT) NO TRICHOMONAS SEEN
[2019-01-21 16:55] LABS: BACTERIA (WET MOUNT) 3+ BACTERIA SEEN; EPITHELIALS (WET MOUNT) 3+ EPITHELIALS SEEN; RBCS (WET MOUNT) 3+ RBCS SEEN; WBCS (WET MOUNT) 2+ WBCS SEEN; YEAST (WET MOUNT) NO YEAST SEEN
[2019-01-21 17:28] LABS: VENOUS BLOOD BASE EXCESS 0.7 mmol/L; VENOUS BLOOD HCO3 26.2 mmol/L (20-32); VENOUS BLOOD PCO2 45.5 mmHg (35-63); VENOUS BLOOD PH 7.38 (7.30-7.42)
[2019-01-21 18:49] LABS: CHLAM PCR NOT DETECTED (NOT DETECT)
[2019-01-21 19:53] VITALS: BP 145/86
== END 2019-01-21 20:09 | disposition home or self-care (01) ==
LOC: ER 11:17
DX: N76.0 Acute vaginitis (principal); B96.89 Other specified bacterial agents as the cause of diseases classified elsewhere; E11.65 Type 2 diabetes mellitus with hyperglycemia; N93.8 Other specified abnormal uterine and vaginal bleeding; R10.2 Pelvic and perineal pain; R10.9 Unspecified abdominal pain; F17.200 Nicotine dependence, unspecified, uncomplicated; J45.909 Unspecified asthma, uncomplicated
CPT/HCPCS: 99284; 96360; 36415; 87086; 87210; 82962; 84703; 85025; 81025; 87088; 80053; 81001; 87186; 87491; 87591; 82803; 76830; 93976; J7030

== ENCOUNTER 2019-02-26 23:36 | Emergency (ER) | payer MEDICARE, MEDICAID ==
[2019-02-26 23:47] VITALS: BP 143/79
--- NOTE | 2019-02-27 00:08 | ER Document Report ---
ED Medical Screen (RME) - General Chief Complaint: High Blood Sugar Stated Complaint: HIGH BLOOD SUGAR Time Seen by Provider: 02/26/19 23:58 Primary Care Provider: MURRAY COPELAND DO [Primary Care Provider] - Follow up as needed Mode of Arrival: Medic Information source: Patient Notes: Patient is a 38-year-old diabetic female presenting to the emergency department with multiple vague complaints tonight. Patient reports she had a "blackout spell". She states she was seen at [facility] and was diagnosed with "stress reaction syndrome". Patient reports her family called EMS when she passed out today, states that the panicked and made her come here. Patient reports she feels fine. Patient reports she also had elevated blood glucose but she had not taken her insulin. Patient reports she is now taking her insulin and feels that this ER visit is unnecessary. Exam: Lung sounds clear and equal bilaterally. Heart sounds S1-S2 present with no ectopy noted. I have greeted and performed a rapid initial assessment of this patient. A comprehensive ED assessment and evaluation of the patient, analysis of test results and completion of the medical decision making process will be conducted by additional ED providers. I have specifically instructed the patient or family members with the patient to immediately return to any nursing staff should anything change in the patient's condition or with their chief complaint. This medical record was dictated with voice recognizing software. There may be grammatical, syntax errors that are unintended. TRAVEL OUTSIDE OF THE [place] IN LAST 30 DAYS: No - Related Data Allergies/Adverse Reactions: brompheniramine maleate [From Dimetapp] Allergy (Severe, Verified 01/21/19 11:18) Extreme hyperactivity, pt feels "high" iodine [Iodine] Allergy (Severe, Verified 01/21/19 11:18) Throat swells, SOB, high fever, rash Penicillins Allergy (Severe, Verified 01/21/19 11:18) Throat swells, high fever, rash, SOB dextromethorphan HBr [From Dimetapp] Allergy (Unknown, Verified 01/21/19 11:18) phenylpropanolamine HCl [From Dimetapp] Allergy (Unknown, Verified 01/21/19 11:18) povidone-iodine [From Betadine] Allergy (Unknown, Verified 01/21/19 11:18) pseudoephedrine HCl [From Dimetapp] Allergy (Unknown, Verified 01/21/19 11:18) Soap [From Betadine] Allergy (Unknown, Verified 01/21/19 11:18) alprazolam [From Xanax] Allergy (Verified 01/21/19 11:18) mirtazapine [From Remeron] Allergy (Verified 01/21/19 11:18) sea food Allergy (Severe, Uncoded 01/21/19 11:18) Anaphylaxis ALL "CILLIN" DRUGS Allergy (Uncoded 01/21/19 11:18) Past Medical History - Social History Family history: Reviewed & Not Pertinent - Past Medical History Cardiac Medical History: Reports: Hx Hypercholesterolemia Pulmonary Medical History: Reports: Hx Asthma - As a child had exercise induced asthma, no meds now, Hx Pneumonia - May 17, 2014 Neurological Medical History: Reports: Hx Seizures - As a child, none for 20 yrs. No meds Endocrine Medical History: Reports: Hx Diabetes Mellitus Type 2 Renal/ Medical History: Denies: Hx Peritoneal Dialysis Psychiatric Medical History: Reports: Hx Anxiety - Plus panic attacks and stress, Hx Bipolar Disorder, Hx Depression, Hx Post Traumatic Stress Disorder Past Surgical History: Reports: Hx Dilation and Curettage, Hx Genitourinary Surgery - D&C 2017, Hx Oral Surgery - [place] teeth - Immunizations Hx Diphtheria, Pertussis, Tetanus Vaccination: Yes - 2005 Physical Exam - Vital signs Vitals: Temp Pulse Resp BP Pulse Ox 98.0 F 98 18 143/79 H 96 02/26/19 23:45 02/26/19 23:45 02/26/19 23:45 02/26/19 23:45 02/26/19 23:45 Course - Vital Signs Vital signs: Temp Pulse Resp BP Pulse Ox 98.0 F 98 18 143/79 H 96 02/26/19 23:45 02/26/19 23:45 02/26/19 23:45 02/26/19 23:45 02/26/19 23:45 Doctor's Discharge - Discharge Referrals: MURRAY COPELAND DO [Primary Care Provider] - Follow up as needed
[2019-02-27 00:58] LABS: ABSOLUTE BASOPHILS # (AUTO) 0.1 10^3/uL (0.0-0.2); ABSOLUTE EOSINOPHILS # (AUTO) 0.4 10^3/uL (0.0-0.6); ABSOLUTE LYMPHOCYTES (AUTO) 4.1 10^3/uL (0.5-4.7); ABSOLUTE MONOCYTES (AUTO) 0.9 10^3/uL (0.1-1.4); BASOPHILS % (AUTO) 1.2 % (0-2); EOSINOPHILS % (AUTO) 3.5 % (0-6); HEMOGLOBIN 12.1 g/dL (12.0-15.5); LYMPHOCYTES % (AUTO) 38.7 % (13-45); MEAN CORPUSCULAR HEMOGLOBIN 23.3 pg (27.0-33.4); MEAN CORPUSCULAR HGB CONC 31.8 g/dL (32.0-36.0); MEAN CORPUSCULAR VOLUME 73 fl (80-97); MONOCYTES % (AUTO) 8.7 % (3-13); PLATELET COUNT 342 10^3/uL (150-450); RED BLOOD COUNT 5.19 10^6/uL (3.72-5.28); RED CELL DISTRIBUTION WIDTH 16.4 % (11.5-14.0); SEGMENTED NEUTROPHILS % (AUTO) 47.9 % (42-78); TOTAL CELLS COUNTED % (AUTO) 100 %; WHITE BLOOD COUNT 10.5 10^3/uL (4.0-10.5)
[2019-02-27 01:05] LABS: APPEARANCE,URINE TURBID; BILIRUBIN,URINE NEGATIVE (NEGATIVE); COLOR,URINE YELLOW; GLUCOSE, URINE >=500 mg/dL (NEGATIVE); KETONES,URINE TRACE mg/dL (NEGATIVE); LEUKOCYTE ESTERASE,URINE MODERATE (NEGATIVE); NITRITE,URINE NEGATIVE (NEGATIVE); PROTEIN,URINE 100 mg/dL (NEGATIVE); URINE SPECIFIC GRAVITY 1.044; UROBILINOGEN,URINE NEGATIVE mg/dL (<2.0)
[2019-02-27 01:17] LABS: ALBUMIN 4.4 g/dL (3.5-5.0); ALKALINE PHOSPHATASE 155 U/L (38-126); ANION GAP 11 (5-19); ASPARTATE AMINO TRANSFERASE 39 U/L (14-36); BILIRUBIN,DIRECT 0.2 mg/dL (0.0-0.4); BILIRUBIN,TOTAL 0.6 mg/dL (0.2-1.3); BLOOD UREA NITROGEN 10 mg/dL (7-20); CALCIUM 9.5 mg/dL (8.4-10.2); CARBON DIOXIDE 27 mmol/L (22-30); CHLORIDE 99 mmol/L (98-107); GLUCOSE 295 mg/dL (75-110); POTASSIUM 3.9 mmol/L (3.6-5.0); TOTAL PROTEIN 8.2 g/dL (6.3-8.2)
== END 2019-02-27 02:15 | disposition left against medical advice (07) ==
LOC: ER 23:36
DX: E11.65 Type 2 diabetes mellitus with hyperglycemia (principal); Z79.4 Long term (current) use of insulin; Z88.0 Allergy status to penicillin; Z91.013 Allergy to seafood; E78.00 Pure hypercholesterolemia, unspecified
CPT/HCPCS: 36415; 80053; 81001; 85025

== ENCOUNTER 2019-04-26 16:11 | Emergency (ER) | payer MEDICARE, MEDICAID ==
[2019-04-26] MEDS ORDERED: NORMAL SALINE 1000 ML 1,000 ML IV ONE ×2 (16:16→16:50)
--- NOTE | 2019-04-26 16:19 | ER Document Report ---
ED Medical Screen (RME) - General Chief Complaint: High Blood Sugar Stated Complaint: BLOOD SUGAR PROBLEM Time Seen by Provider: 04/26/19 16:15 Primary Care Provider: MURRAY COPELAND DO [Primary Care Provider] - Follow up as needed Mode of Arrival: Medic Information source: Patient Notes: 38-year-old female presented to ED for elevated blood sugar. She states is been at least upper 200s to upper 300s for the last 3 or 4 days. She states she is gone through almost a case of water in the last week due to being constantly thirsty. She is a insulin dependent diabetic. She states she did not take her insulin today because of being sick and weak. She states she has not vomited. I have greeted and performed a rapid initial assessment of this patient. A co mprehensive ED assessment and evaluation of the patient, analysis of test results and completion of medical decision making process will be conducted by an additional ED providers. TRAVEL OUTSIDE OF THE [place] IN LAST 30 DAYS: No - Related Data Allergies/Adverse Reactions: brompheniramine maleate [From Dimetapp] Allergy (Severe, Verified 01/21/19 11:18) Extreme hyperactivity, pt feels "high" iodine [Iodine] Allergy (Severe, Verified 01/21/19 11:18) Throat swells, SOB, high fever, rash Penicillins Allergy (Severe, Verified 01/21/19 11:18) Throat swells, high fever, rash, SOB dextromethorphan HBr [From Dimetapp] Allergy (Unknown, Verified 01/21/19 11:18) phenylpropanolamine HCl [From Dimetapp] Allergy (Unknown, Verified 01/21/19 11:18) povidone-iodine [From Betadine] Allergy (Unknown, Verified 01/21/19 11:18) pseudoephedrine HCl [From Dimetapp] Allergy (Unknown, Verified 01/21/19 11:18) Soap [From Betadine] Allergy (Unknown, Verified 01/21/19 11:18) alprazolam [From Xanax] Allergy (Verified 01/21/19 11:18) mirtazapine [From Remeron] Allergy (Verified 01/21/19 11:18) sea food Allergy (Severe, Uncoded 01/21/19 11:18) Anaphylaxis ALL "CILLIN" DRUGS Allergy (Uncoded 01/21/19 11:18) Past Medical History - Social History Family history: Reviewed & Not Pertinent - Past Medical History Cardiac Medical History: Reports: Hx Hypercholesterolemia Pulmonary Medical History: Reports: Hx Asthma - As a child had exercise induced asthma, no meds now, Hx Pneumonia - May 17, 2014 Neurological Medical History: Reports: Hx Seizures - As a child, none for 20 yrs. No meds Endocrine Medical History: Reports: Hx Diabetes Mellitus Type 2 Renal/ Medical History: Denies: Hx Peritoneal Dialysis Musculoskeltal Medical History: Psychiatric Medical History: Reports: Hx Anxiety - Plus panic attacks and stress, Hx Bipolar Disorder, Hx Depression, Hx Post Traumatic Stress Disorder Past Surgical History: Reports: Hx Dilation and Curettage, Hx Genitourinary Surgery - D&C 2017, Hx Oral Surgery - [place] teeth - Immunizations Hx Diphtheria, Pertussis, Tetanus Vaccination: Yes - 2006 Doctor's Discharge - Discharge Referrals: MRURAY COPELAND DO [Primary Care Provider] - Follow up as needed
--- NOTE | 2019-04-26 16:23 | ER Document Report ---
ED General - General Mode of Arrival: Medic TRAVEL OUTSIDE OF THE [place] IN LAST 30 DAYS: No <REGIS GOMES - Last Filed: 04/26/19 19:56> <FRANCINE BERNARD - Last Filed: 04/26/19 20:30> - General Chief Complaint: High Blood Sugar Stated Complaint: BLOOD SUGAR PROBLEM Time Seen by Provider: 04/26/19 16:15 Primary Care Provider: MURRAY COPELAND DO [Primary Care Provider] - 04/28/19 - HPI Notes: Patient is a 38-year-old female with a history of insulin-dependent diabetes and multiple mental health disorders who presents complaining of urinary burning and urgency as well as frequency for the past 3 days. She has had some diarrhea over the past several days as well. Her sugars have always been running high chronically. Patient states that she did have a right nipple ring put in about a week ago that is irritated and believes it needs to be removed. She is able to eat and drink. She has not had any vaginal discharge, odor, or bleeding. Denies any headache, fever, neck pain, URI, sore throat, chest pain, palpitations, syncope, cough, shortness of breath, wheeze, dyspnea, nausea/vomiting, back pain, loss of control of bowel or bladder, numbness/tingling, saddle anesthesia, muscle paralysis/weakness. (REGIS GOMES) - Related Data Allergies/Adverse Reactions: brompheniramine maleate [From Dimetapp] Allergy (Severe, Verified 01/21/19 11:18) Extreme hyperactivity, pt feels "high" iodine [Iodine] Allergy (Severe, Verified 01/21/19 11:18) Throat swells, SOB, high fever, rash Penicillins Allergy (Severe, Verified 01/21/19 11:18) Throat swells, high fever, rash, SOB dextromethorphan HBr [From Dimetapp] Allergy (Unknown, Verified 01/21/19 11:18) phenylpropanolamine HCl [From Dimetapp] Allergy (Unknown, Verified 01/21/19 11:18) povidone-iodine [From Betadine] Allergy (Unknown, Verified 01/21/19 11:18) pseudoephedrine HCl [From Dimetapp] Allergy (Unknown, Verified 01/21/19 11:18) Soap [From Betadine] Allergy (Unknown, Verified 01/21/19 11:18) alprazolam [From Xanax] Allergy (Verified 01/21/19 11:18) mirtazapine [From Remeron] Allergy (Verified 01/21/19 11:18) sea food Allergy (Severe, Uncoded 01/21/19 11:18) Anaphylaxis ALL "CILLIN" DRUGS Allergy (Uncoded 01/21/19 11:18) Past Medical History - General Information source: Patient - Social History Smoking Status: Unknown if Ever Smoked Family History: Arthritis, CAD, CVA, DM, Hyperlipidemia, Hypertension, Malignancy, Other - Seizures. denies: COPD - Past Medical History Cardiac Medical History: Reports: Hx Hypercholesterolemia Pulmonary Medical History: Reports: Hx Asthma - As a child had exercise induced asthma, no meds now, Hx Pneumonia - May 17, 2014 Neurological Medical History: Reports: Hx Seizures - As a child, none for 20 yrs. No meds Endocrine Medical History: Reports: Hx Diabetes Mellitus Type 2 Renal/ Medical History: Denies: Hx Peritoneal Dialysis Musculoskeletal Medical History: Psychiatric Medical History: Reports: Hx Anxiety - Plus panic attacks and stress, Hx Bipolar Disorder, Hx Depression, Hx Post Traumatic Stress Disorder Past Surgical History: Reports: Hx Dilation and Curettage, Hx Genitourinary Surgery - D&C 2017, Hx Oral Surgery - [place] teeth - Immunizations Hx Diphtheria, Pertussis, Tetanus Vaccination: Yes - 2005 <REGIS GOMES - Last Filed: 04/26/19 19:56> Review of Systems - Review of Systems -: Yes All other systems reviewed and negative <REGIS GOMES - Last Filed: 04/26/19 19:56> Physical Exam <REGIS GOMES - Last Filed: 04/26/19 19:56> - Vital signs Vitals: Temp Resp BP Pulse Ox 98.6 F 18 159/87 H 96 04/26/19 16:18 04/26/19 16:18 04/26/19 16:18 04/26/19 16:18 - Notes Notes: PHYSICAL EXAMINATION: GENERAL: Well-appearing, well-nourished and in no acute distress. HEAD: Atraumatic, normocephalic. EYES: Pupils equal round and reactive to light, extraocular movements intact, sclera anicteric, conjunctiva are normal. ENT: Nares patent and without discharge. oropharynx clear without exudates. No tonsilar hypertrophy or erythema. Moist mucous membranes. NECK: Normal range of motion, supple without lymphadenopathy LUNGS: Breath sounds clear to auscultation bilaterally and equal. No wheezes rales or rhonchi. HEART: Regular rate and rhythm without murmurs, rubs, gallops. ABDOMEN: Soft, nontender, nondistended abdomen. No guarding, no rebound. Normal bowel sounds present. No CVA tenderness bilaterally. Musculoskeletal: FROM to passive/active. Strength 5+/5. Extremities: No cyanosis, clubbing, or edema b/l. Peripheral pulses 2+. Capillary refill less than 3 seconds. NEUROLOGICAL: Cranial nerves grossly intact. Normal speech, normal gait. PSYCH: Normal mood, normal affect. SKIN: Rt nipple: nipple ring is in place surrounded by erythema and scant purulence at the piercing itself. + tenderness. No other fluctuance noted. (REGIS GOMES) Course - Laboratory Result Diagrams: 04/26/19 16:27 04/26/19 16:27 <REGIS GOMES - Last Filed: 04/26/19 19:56> - Laboratory Result Diagrams: 04/26/19 16:27 04/26/19 16:27 <FRANCINE BERNARD - Last Filed: 04/26/19 20:30> - Re-evaluation Re-evalutation: 04/26/19 19:25 Case has been reviewed thus far with Dr. Beth. We removed the nipple rings b/l and replaced with a nonabsorbent tubing to allow proper healing without closing off. Wound dressing has been placed and wound instructions reviewed thoroughly with the patient. We will send her with clindamycin. She does have swelling with PCN's. We will replace the calcium. We will replace potassium and then give regular insulin to aide with the elevated glucose (accucheck prior). We are still trying to obtain a Urine. She does have a mild elevation of the WBC's with 2 bands. Unremarkable lactic acid and VBG. Pt has been given 2L of fluid as well. 04/26/19 19:[address] Beth. We will give a PO dose of keflex, recommends the keflex/bactrim combo over cleocin at this time. We will give another 40 of potassium PO. We do not need to recheck the labs, but will wait for urine. She is to take 2 extra strength tums for a few days. Patient is otherwise an afebrile, well-hydrated 38-year-old female who presents with elevated glucose, diarrhea, hypokalemia, hypocalcemia, nipple piercing infection. Vitals are currently acceptable. Transfer of care to Emerita GUERRA (REGIS GOMES) - Vital Signs Vital signs: Temp Pulse Resp BP Pulse Ox 98.6 F 17 152/80 H 94 04/26/19 16:18 04/26/19 19:01 04/26/19 19:01 04/26/19 19:01 - Laboratory Laboratory results interpreted by me: 04/26/19 04/26/19 04/26/19 16:25 16:27 16:27 WBC 12.8 H Hgb 10.4 L Hct 34.1 L MCV 76 L MCH 23.3 L MCHC 30.6 L RDW 18.0 H Seg Neuts % (Manual) 79 H Band Neutrophils % 2 L Lymphocytes % (Manual) 9 L Abs Neuts (Manual) 10.5 H Sodium 132.0 L Potassium 3.1 L Chloride 94 L BUN 5 L Glucose 468 H* POC Glucose 523 H* Calcium 7.7 L Alkaline Phosphatase 135 H Total Protein 5.7 L Albumin 3.0 L Urine Protein Urine Glucose (UA) Urine Ketones Urine Blood Leukocyte Esterase Rfl 04/26/19 04/26/19 04/26/19 17:43 19:18 19:55 WBC Hgb Hct MCV MCH MCHC RDW Seg Neuts % (Manual) Band Neutrophils % Lymphocytes % (Manual) Abs Neuts (Manual) Sodium Potassium Chloride BUN Glucose POC Glucose 401 H* 342 H Calcium Alkaline Phosphatase Total Protein Albumin Urine Protein 30 H Urine Glucose (UA) >=500 H Urine Ketones 80 H Urine Blood MODERATE H Leukocyte Esterase Rfl LARGE H Procedures - Additional Procedures Nipple ring removal Additional Procedures: Other - nipple ring removed, rubbing tubing put in its place to allow for healing with the tubing tied together. <REGIS GOMES - Last Filed: 04/26/19 19:56> Discharge <REGIS GOMES - Last Filed: 04/26/19 19:56> <FRANCINE BERNARD - Last Filed: 04/26/19 20:30> - Discharge Clinical Impression: Infected pierced nipple, Elevated glucose, Hypokalemia, Hypocalcemia Condition: Stable Disposition: HOME, SELF-CARE Additional Instructions: Push fluids Take insulin regularly and monitor blood glucose daily Keep the skin clean Take 2 extra strength tums for the next several days (will help with diarrhea as well) Wash with soap and water Epsom salt soaks Chlorhexadine scrubs as reviewed Tylenol/ibuprofen if needed Take medication as directed Monitor for any worsening symptoms Recheck with your PCM in 3-5 days Consider consult with General Surgeon for ongoing/worsening symptoms Return to the ED with any worsening symptoms and/or development of fever, headache, chest pain, palpitations, syncope, shortness of breath, trouble breathing, abdominal pain, n/v/d, abscess, purulent discharge, red streaks, worsening swelling, or other worsening symptoms that are concerning to you. Prescriptions: Sulfamethoxazole/Trimethoprim [Bactrim Ds Tablet] 1 each PO BID #20 tablet Cephalexin Monohydrate [Keflex 500 mg Capsule] 500 mg PO QID #40 capsule Forms: Elevated Blood Pressure Referrals: MURRAY COPELAND DO [Primary Care Provider] - 04/28/19
[2019-04-26 16:55] LABS: HEMATOCRIT 34.1 % (36.0-47.0); HEMOGLOBIN 10.4 g/dL (12.0-15.5); MEAN CORPUSCULAR HEMOGLOBIN 23.3 pg (27.0-33.4); MEAN CORPUSCULAR HGB CONC 30.6 g/dL (32.0-36.0); MEAN CORPUSCULAR VOLUME 76 fl (80-97); PLATELET COUNT 191 10^3/uL (150-450); RED BLOOD COUNT 4.49 10^6/uL (3.72-5.28); WHITE BLOOD COUNT 12.8 10^3/uL (4.0-10.5)
[2019-04-26 16:57] LABS: VENOUS BLOOD BASE EXCESS 1.3 mmol/L; VENOUS BLOOD PCO2 41.4 mmHg (35-63); VENOUS BLOOD PH 7.42 (7.30-7.42)
[2019-04-26 17:16] LABS: ABSOLUTE LYMPHOCYTES# (MANUAL) 1.2 10^3/uL (0.5-4.7); ABSOLUTE MONOCYTES # (MANUAL) 0.5 10^3/uL (0.1-1.4); BAND NEUTROPHILS % (MANUAL) 2 % (3-5); BASOPHILS % (MANUAL) 1 % (0-2); EOSINOPHILS % (MANUAL) 4 % (0-6); LYMPHOCYTES % (MANUAL) 9 % (13-45); METAMYELOCYTES % (MANUAL) 1 % (0-1); MONOCYTES % (MANUAL) 4 % (3-13); NUCLEATED RED BLOOD CELLS 1 /100 WBC (0); SEGMENTED NEUTROPHILS % (MAN) 79 % (42-78); TOTAL CELLS COUNTED 100
[2019-04-26 17:17] LABS: ANISOCYTOSIS 1+; PLATELET COMMENT ADEQUATE; POLYCHROMASIA 1+; TOXIC VACUOLATION PRESENT
[2019-04-26 17:18] LABS: ALKALINE PHOSPHATASE 135 U/L (38-126); ANION GAP 14 (5-19); ASPARTATE AMINO TRANSFERASE 22 U/L (14-36); BILIRUBIN,DIRECT 0.3 mg/dL (0.0-0.4); BILIRUBIN,TOTAL 0.8 mg/dL (0.2-1.3); BLOOD UREA NITROGEN 5 mg/dL (7-20); CALCIUM 7.7 mg/dL (8.4-10.2); CARBON DIOXIDE 24 mmol/L (22-30); CHLORIDE 94 mmol/L (98-107); POTASSIUM 3.1 mmol/L (3.6-5.0); TOTAL PROTEIN 5.7 g/dL (6.3-8.2)
[2019-04-26 17:25] LABS: GLUCOSE 468 mg/dL (75-110)
[2019-04-26] MEDS ORDERED: MORPHINE SULFATE 10 MG/ML INJ IV ONE (18:10)
[2019-04-26] MEDS ORDERED: CALCIUM GLUCONATE 1000 MG/10 ML INJ IV ONE (18:11)
[2019-04-26] MEDS ORDERED: POTASSIUM CHLORIDE 10 MEQ TABLET.ER PO ONE ×2 (18:12→20:00)
[2019-04-26] MEDS ORDERED: POTASSI CL 20 MEQ/50 ML RIDER 20 MEQ/50 ML RTUPB IV ONE (18:12)
[2019-04-26] MEDS ORDERED: CEPHALEXIN 500 MG CAPSULE PO ONE (19:55)
[2019-04-26] MEDS ORDERED: INSULIN REG, HUMAN 100 UNIT/ML 3 ML VIAL (PYX) SUBCUT ONE (20:04)
[2019-04-26 20:10] LABS: APPEARANCE,URINE SLIGHTLY-CLOUDY; BILIRUBIN,URINE NEGATIVE (NEGATIVE); COLOR,URINE YELLOW; GLUCOSE, URINE >=500 mg/dL (NEGATIVE); KETONES,URINE 80 mg/dL (NEGATIVE); PROTEIN,URINE 30 mg/dL (NEGATIVE); URINE SPECIFIC GRAVITY 1.024; UROBILINOGEN,URINE NEGATIVE mg/dL (<2.0)
[2019-04-26] MEDS ORDERED: SULFAMETHOXAZOLE/TRIMETHOPRIM 800-160 MG TABLET PO ONE (20:26)
[2019-04-26 21:04] VITALS: BP 152/84
--- NOTE | 2019-04-26 23:33 | EKG REPORT ---
SEVERITY:- OTHERWISE NORMAL ECG - SINUS TACHYCARDIA : Confirmed by: Renny Cordova 26-Apr-2019 23:33:00
== END 2019-04-26 21:04 | disposition home or self-care (01) ==
LOC: ER 16:11
DX: N61.0 Mastitis without abscess (principal); E87.6 Hypokalemia; E83.51 Hypocalcemia; E11.65 Type 2 diabetes mellitus with hyperglycemia; R39.15 Urgency of urination; R35.0 Frequency of micturition; R19.7 Diarrhea, unspecified; D72.829 Elevated white blood cell count, unspecified; Z88.8 Allergy status to other drugs, medicaments and biological substances; Z88.0 Allergy status to penicillin; Z88.3 Allergy status to other anti-infective agents; Z87.892 Personal history of anaphylaxis; Z91.013 Allergy to seafood
CPT/HCPCS: 93005; 99284; 96361; 96375; 96365; 96366; 36415; 82962; 83735; 84703; 85025; 80053; 81001; 82803; 83605; 93010; J0610; A9270 ×4; J2270; J3480; J7030; J1815

== ENCOUNTER → 2019-07-15 | Outpatient (CLI) | payer MEDICARE, MEDICAID ==
[2019-07-15 11:48] LABS: A TYPE INFLUENZA AG NEGATIVE (NEGATIVE); B INFLUENZA AG NEGATIVE (NEGATIVE)
== END ==
LOC: OD 11:06
PROVIDERS: ATTEND Nurse Practitioner Family
DX: R50.9 Fever, unspecified (principal)
CPT/HCPCS: 87804